=== PATIENT | female | born 1995 | race Caucasian/White ===

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

== ENCOUNTER 2018-11-22 12:33 | Emergency (ER) | payer OTHER ==
[~2018-11-22] VITALS: Ht 144.8 cm; Wt 51.4 kg
[2018-11-22 12:38] VITALS: Ht 144.8 cm; Wt 51.4 kg
[2018-11-22 14:30] LABS: BASOPHIL % 0.3 % (0-2); PLATELET COUNT 258 x10^3mcL (130-400); RED CELL DISTRIBUTION WIDTH 13.1 % (11.5-14.5)
[2018-11-22 15:06] LABS: CALCIUM 9.5 mg/dL (8.5-10.1); CARBON DIOXIDE 21.6 mmol/L (21-32); CHLORIDE SERUM 109 mmol/L (98-107); CREATININE SERUM 0.7 mg/dL (0.6-1.0); GFR1 > 60 mL/min; GLUCOSE SERUM 93 mg/dL (74-106); POTASSIUM SERUM 4.3 mmol/L (3.5-5.1); SODIUM SERUM 144 mmol/L (136-145)
[2018-11-22 17:24] LABS: UA SPECIFIC GRAVITY <=1.005 (1.005-1.035); microscopic required? YES; urine erythrocyte 2+ (NEGATIVE)
[2018-11-22 18:11] VITALS: BP 93/62
== END 2018-11-22 18:11 | disposition home or self-care (01) ==
LOC: ED 12:33
PROVIDERS: Emergency Medicine
DX: N20.1 Calculus of ureter (principal)
CPT/HCPCS: J1885; J7030; Q0092

== ENCOUNTER 2018-12-19 16:20 | Emergency (ER) | payer OTHER ==
[~2018-12-19] VITALS: Ht 144.8 cm; Wt 50.8 kg
[2018-12-19 16:31] VITALS: BP 135/76; Ht 144.8 cm; Wt 50.8 kg
== END 2018-12-19 19:43 | disposition left against medical advice (07) ==
LOC: ED 16:20
DX: Z53.21 Procedure and treatment not carried out due to patient leaving prior to being seen by health care provider (principal)

== ENCOUNTER 2019-02-10 13:58 | Emergency (ER) | payer OTHER ==
[~2019-02-10] VITALS: Ht 144.8 cm; Wt 49.9 kg
[2019-02-10 14:00] VITALS: Ht 144.8 cm; Wt 49.9 kg
[2019-02-10 17:21] LABS: BASOPHIL % 0.1 % (0-2); PLATELET COUNT 259 x10^3mcL (130-400); RED CELL DISTRIBUTION WIDTH 12.4 % (11.5-14.5)
[2019-02-10 17:37] LABS: CALCIUM 8.4 mg/dL (8.5-10.1); CARBON DIOXIDE 21.7 mmol/L (21-32); CHLORIDE SERUM 104 mmol/L (98-107); CREATININE SERUM 0.7 mg/dL (0.6-1.0); GFR1 > 60 mL/min; GLUCOSE SERUM 103 mg/dL (74-106); POTASSIUM SERUM 4.6 mmol/L (3.5-5.1); SODIUM SERUM 138 mmol/L (136-145)
[2019-02-10 17:42] LABS: ALBUMIN 4.3 g/dL (3.4-5.0); ALKALINE PHOSPHATASE 107 U/L (46-116); ALT/SGPT 12 U/L (14-59); AST/SGOT 8 U/L (15-37); BILIRUBIN TOTAL 0.92 mg/dL (0.20-1.00); TOTAL PROTEIN, SERUM 8.1 g/dL (6.4-8.2)
[2019-02-10 19:06] VITALS: BP 125/72
== END 2019-02-10 19:06 | disposition home or self-care (01) ==
LOC: ED 13:58
PROVIDERS: Emergency Medicine
DX: N20.0 Calculus of kidney (principal); N34.2 Other urethritis; Z87.442 Personal history of urinary calculi
CPT/HCPCS: J0696; J1885; J2405; J7060